=== PATIENT | male | born 1970 ===

== ENCOUNTER 2022-07-02 09:00 | Emergency (ER) | payer OTHER, SELFPAY ==
--- NOTE | ~2022-07-02 | CT_ITS ---
EXAMINATION: CT brain wo con DATE: 07/02/2022 10:07 INDICATION: Upper extremity paresis. Upper body weakness. TECHNIQUE: Computed tomography (CT) of the head was performed without intravenous contrast. The mA wa s adjusted according to patient size. Iterative reconstruction technique was employed. Exam dose: 68 1.00 mGy-cm total exam DLP. COMPARISON: None FINDINGS: No intracranial mass lesion or hemorrhage or cerebrovascular accident. No midline shift or mass effect effect. Normal ventricular size. Normal win-white matter differentiation. No subdural or epidural hematoma. The orbital contents are unremarkable. There is patchy soft tissue thickening of the ethmoid air cells bilaterally. Minimal mucoperiosteal t hickening of the sphenoid sinuses. There is opacification of the minimally developed right frontal si nus. The mastoid air cells are normally developed and aerated. No fracture or bone destruction of the cranial vault. IMPRESSION: No significant intracranial abnormality Paranasal sinus disease Reviewed, dictated and finalized at [facility]. Reviewed, dictated and finalized at [facility].
--- NOTE | ~2022-07-02 | CT_ITS ---
EXAMINATION: CT cervical spine wo con DATE: 07/02/2022 10:07 INDICATION: Upper extremity weakness TECHNIQUE: Computed tomography (CT) of the cervical spine was performed without intravenous contrast. Automated exposure control and iterative reconstruction technique were employed. Exam dose: 407.69 mGy-cm total exam DLP. COMPARISON: None FINDINGS: There is straightening of the cervical spine which may be due to muscle spasm and/or positi oning. C1 and C2 are normally aligned and the odontoid process is intact. No fracture or dislocation or lock ed facet or prevertebral soft tissue swelling. C2-3 interspace is well preserved. Moderate degenerative disc disease at C3-4. Mild degenerative disc disease at C4-5. Moderately severe degenerative disc disease, mild posterior spurring and approximately 1.5 mm retroli sthesis at C5-6. Moderately severe degenerative disc disease and mild to moderate posterior spurring at C6-7. IMPRESSION: Straightening of the cervical spine which may be due to muscle spasm Multilevel degenerative disc disease, greatest at C5-6 and C6-7, with 1.5 mm retrolisthesis at C5-6 Reviewed, dictated and finalized at [facility]. Reviewed, dictated and finalized at location [facility]. IMPRESSION: Straightening of the cervical spine which may be due to muscle spa sm Multilevel degenerative disc disease, greatest at C5-6 and C6-7, with 1.5 mm re trolisthesis at C5-6
[2022-07-02 09:08] VITALS: BP 143/92; PULSE 95; RESP 20; TEMP 36.6; O2SAT 99
--- NOTE | 2022-07-02 09:19 | ECG_ITS ---
Measurements Intervals [place] Rate: 80 P: 10 [place]: 159 QRS: -14 QRSD: 111 T: 15 QT: 344 QTc: 398 Interpretive Statements SINUS RHYTHM MODERATE INTRAVENTRICULAR CONDUCTION DELAY [110+ ms QRS DURATION] NO PREVIOUS ECG AVAILABLE FOR COMPARISON Electronically Signed On 07-02-2022 10:21:52 CDT by Ki Olmos MD
--- NOTE | 2022-07-02 09:22 | ED.NEUROSD ---
HPI - Neuro Symptoms/Deficit General Chief Complaint: Neuro Symptoms/Deficit Stated Complaint: episodes of arm numbness Time Seen by Provider: 07/02/22 09:06 History of Present Illness HPI Narrative: 51-year-old male with no medical history presents to the emergency room for evaluation of intermittent loss of fine motor skills in his upper extremities. Patient reports about 2 weeks ago he was experiencing waves of generalized weakness in his upper extremities, which then followed and being unable to pick up worker small objects with his hands. Patient states that this lasted for around 30 minutes. States after experiencing the weakness in his hands his arms began to shake. Patient states since then he has experienced this 3 other times. He was seen at his primary care physician's office earlier this week for the same complaint, and he was prescribed an anti-inflammatory and a muscle relaxer. States that these are not alleviating his symptoms. Denies any vision changes or vision loss, also states that he does not experience any loss of fine motor movement in his lower extremities. Denies any injury or trauma. Denies fever Related Data Allergies Allergy/AdvReac Type Severity Reaction Status Date / Time No Known Allergies Allergy Verified 07/02/22 09:46 Review of Systems Review of Systems: CONSTITUTIONAL: Denies fever, chills, or sweats. EYES: Denies visual changes, redness, or discharge. ENT: Denies rhinorrhea, congestion, sore throat, or otalgia. CARDIOVASCULAR: Denies chest pain, palpitations, or edema. RESPIRATORY: Denies cough or dyspnea. GASTROINTESTINAL: Denies abdominal pain, nausea, vomiting, or diarrhea. GENITOURINARY: Denies dysuria or hematuria. SKIN: Denies rash or itching. MUSCULOSKELETAL: Denies back pain, joint pain, or myalgia. NEUROLOGIC: Reports weakness in upper extremities PSYCHIATRIC: Denies anxiety or depression. [facility] Family History Family History Mother Family history of lung cancer Social History Social History Smoking status: Never smoker Alcohol intake: current Exam Narrative: GENERAL: Well-appearing, well-nourished, no physical limitations, and in no acute distress. HEAD: Normocephalic, atraumatic. EYES: Conjunctivae normal, PERRLA and EOMI. NECK: Supple. No adenopathy or masses. CHEST: Clear to auscultation. No respiratory distress. No wheezes rales or rhonchi. No tenderness. HEART: Regular rate and rhythm. No murmur heard. Normal peripheral pulses. ABDOMEN: Soft, nontender, nondistended, normal active bowel sounds. BACK: No CVA tenderness; No cervical/thoracic/lumbar tenderness, step-offs, bony abnormality; FROM EXTREMITIES: Normal range of motion. No edema. No clubbing or cyanosis SKIN: Warm, dry, no rash. No noted wounds NEURO: No focal deficits. Alert and oriented x3. MAEW. CN's II-XI intact bilaterally, normal gait. Upper muscular exam: 5/5 strength with gross and fine motor movement; cerebellar exam normal PSYCH: Cooperative. Normal mood and affect. Course Vital Signs Vital signs: Vital Signs Temperature 36.6 C 07/02/22 09:08 Pulse Rate 95 07/02/22 09:08 Respiratory Rate 20 07/02/22 09:08 Blood Pressure 143/92 H 07/02/22 09:08 Pulse Oximetry 99 07/02/22 09:08 Oxygen Delivery Room Air 07/02/22 09:08 Temperature 36.6 C 07/02/22 09:08 Pulse Rate 95 07/02/22 09:08 Respiratory Rate 20 07/02/22 09:08 Blood Pressure 143/92 H 07/02/22 09:08 Pulse Oximetry 99 07/02/22 09:08 Oxygen Delivery Room Air 07/02/22 09:08 MDM - Neuro Symptoms/Deficit MDM Narrative Medical decision making narrative: 51-year-old male presented emergency room for evaluation of intermittent upper extremity alterations in his fine motor movements. CT scan showed no evidence of acute intracranial abnormality. Presentation was not concerning for an acute CVA, TIA
[2022-07-02 09:53] LABS: Basophils Percent Auto 0.8 % (0.2-1.2); Eosinophils Absolute Auto 0.3 K/mm3 (0-0.3); Eosinophils Percent Auto 5.3 % (0-4.4); Hematocrit 44.9 % (42.0-52.0); Hemoglobin 15.6 g/dL (14.0-18.0); Immature Granulocyte Absolute 0.02 K/mm3 (0.00-0.031); Immature Granulocyte Percent A 0.4 % (0-0.5); Lymphocytes Absolute Auto 1.68 K/mm3 (0.9-3.2); Lymphocytes Percent Auto 31.6 % (18.3-44.2); Mean Corpuscular HGB Conc 34.7 g/dl (32-36); Mean Corpuscular Volume 89.3 fl (80-100); Mean Platelet Volume 9.1 fl (7.4-10.4); Monocytes Absolute Auto 0.3 K/mm3 (0.1-0.6); Monocytes Percent Auto 5.5 % (2.6-8.5); Neutrophils Percent Auto 56.4 % (45.5-73.1); Platelet Count Result 243 k/mm3 (150-375); Red Blood Count 5.03 M/mm3 (4.6-6.20); Red Cell Distribution Width 13.2 % (11.5-14.5); White Blood Count 5.3 K/mm3 (4.5-10.0)
--- NOTE | 2022-07-02 10:00 | PC.NURSE ---
Patient off unit to CT.
[2022-07-02 10:03] LABS: Alanine Aminotransferase 36 U/L (6-50); Albumin Level 4.7 g/dL (3.5-5.1); Alkaline Phosphatase 58 U/L (38-126); Anion Gap 7 mmol/L (8-16); Aspartate Amino Transferase 35 U/L (17-59); Bilirubin,Total 0.9 mg/dL (0.2-1.3); Blood Urea Nitrogen 14 mg/dL (9-20); Calcium 9.3 mg/dL (8.4-10.2); Carbon Dioxide 25 mmol/L (22-30); Chloride 103 mmol/L (98-107); Estimated Glomerular Filt Rate > 60; Glucose 92 mg/dL (65-110); Potassium 4.5 mmol/L (3.4-5.0); Sodium 135 mmol/L (137-145)
[2022-07-02 10:15] LABS: Troponin I < 0.012 ng/mL (0.000-0.034)
[2022-07-02 10:56] VITALS: BP 133/85; PULSE 85; RESP 14; O2SAT 97
== END 2022-07-02 10:57 | disposition home or self-care (01) ==
PROVIDERS: Emergency Provider Nurse Practitioner Family; PCP Family Medicine
DX: R53.1 Weakness (principal)
CPT/HCPCS: 36415; 70450; 72125; 80053; 84484; 85025; 93005; 99284

== ENCOUNTER 2022-07-31 06:32 | Outpatient (CLI) | payer OTHER, SELFPAY ==
--- NOTE | ~2022-07-31 | MR_ITS ---
EXAMINATION: MR cervical spine wo/w con DATE: 07/31/2022 09:21 INDICATION: Bilateral arm numbness. Bilateral arm paralysis. TECHNIQUE: Magnetic resonance imaging (MRI) of the cervical spine was performed without and with 16 m L MultiHance intravenous contrast. COMPARISON: CT cervical spine 07/02/2022 FINDINGS: Bone alignment is normal. Vertebral body heights are normal. There is mildly decreased disc height at C3-C4 and C4-C5, moderately decreased disc height at C5-C6, and severely decreased disc he ight at C6-C7 with endplate remodeling. The spinal cord signal intensity is normal. The following dis c levels are specifically discussed: C2-C3: The disc does not extend beyond the endplate margin. There is mild bilateral uncovertebral martinez nt osteoarthritis. There is mild bilateral facet joint osteoarthritis. There is mild bilateral neural foraminal stenosis. There is no central canal stenosis. C3-C4: The disc is bulging. There is severe right and moderate left uncovertebral joint osteoarthriti s. There is mild bilateral facet joint osteoarthritis. There is mild bilateral neural foraminal steno sis. There is mild central canal stenosis. C4-C5: The disc is bulging. There is mild right and severe left uncovertebral joint osteoarthritis. T here is mild bilateral facet joint osteoarthritis. There is mild right and moderate left neural silke inal stenosis. There is mild central canal stenosis. C5-C6: The disc is bulging. There is severe bilateral uncovertebral joint osteoarthritis. There is mi ld bilateral facet joint osteoarthritis. There is moderate bilateral neural foraminal stenosis. There is mild central canal stenosis. C6-C7: The disc is bulging. There is severe bilateral uncovertebral joint osteoarthritis. There is mo derate bilateral facet joint osteoarthritis. There is mild bilateral neural foraminal stenosis. There is mild central canal stenosis. C7-T1: There is a left central extrusion. There is no uncovertebral joint osteoarthritis. There is se katelynn bilateral facet joint osteoarthritis. There is mild bilateral neural foraminal stenosis. There i s mild central canal stenosis. IMPRESSION: 1. Severe cervical spondylosis. Reviewed, dictated and finalized at location A.
--- NOTE | 2022-07-31 10:11 | WPDNEUROLOGY ---
Neurology EEG Report General Information Date of Study: 07/31/22 TEST Routine EEG DIAGNOSIS Concern for seizure CONDITION OF RECORDING Awake and drowsy EEG NUMBER [id number] CLINICAL HISTORY Patient reports he has had two episodes while at work when he gets a strange feeling starting in his neck which travels down to his hands. His arms and hands become paralyzed and shakey . This lasts for several minutes. He denies any loss of consciousness or confusion. EEG DESCRIPTION During the awake state with eyes closed the background consists of 9 Hz posterior dominant rhythm which attenuates appropriately with eye opening. The recording is continuous. There is frequent eye blink artifact throughout the recording. There is a well developed anterior-posterior gradient. No significant asymmetries of background activities are noted. With drowsiness there is was waxing and waning of the dominant rhythm with eventual replacement by a mixture of beta, alpha, and theta activity. The patient does not enter stage II sleep. Photic stimulation elicited appropriate driving response. There are no epileptiform discharges or seizures during this recording. Hyperventilation was not performed. IMPRESSION This is a normal routine EEG recorded in awake and drowsy states. There are no electrographic seizures identified, nor are there any epileptiform discharges. Please note that a normal EEG cannot exclude a seizure disorder. Clinical correlation is recommended.
== END 2022-07-31 06:33 | disposition home or self-care (01) ==
PROVIDERS: PCP Family Medicine; Visit Provider Psychiatry & Neurology Neurology
DX: M47.813 Spondylosis without myelopathy or radiculopathy, cervicothoracic region (principal); M48.03 Spinal stenosis, cervicothoracic region; R20.0 Anesthesia of skin; R56.9 Unspecified convulsions
CPT/HCPCS: 72156; 95816; A9577

== ENCOUNTER 2025-03-22 09:26 | Outpatient (CLI) | payer MEDICAID, SELFPAY ==
--- NOTE | ~2025-03-22 | XR_ITS ---
3 VIEWS LUMBAR SPINE Ordering provider: Rodriguez Lazar, History: . Pain in lt shoulder/ low back pain . Comparison: None. FINDINGS: VERTEBRAL BODIES: No visible fracture or subluxation. Degenerative changes of the spine. Levoscoliosi s. DISK SPACES: Normal. SOFT TISSUES: Normal. IMPRESSION: No acute osseous abnormality lumbar spine. Levoscoliosis. Degenerative changes of the spine Reviewed, dictated and finalized at location A.
--- NOTE | ~2025-03-22 | XR_ITS ---
Left Shoulder Technique: AP and axillary views were obtained. Clinical History: Pain Findings: No fracture or dislocation is seen. Osseous alignment is anatomic. The glenohumeral and acr omioclavicular joint spaces are preserved. Soft tissues are unremarkable. Impression: Unremarkable left shoulder radiographs. Reviewed, dictated and finalized at [facility]. Impression: Unremarkable left shoulder radiographs.
--- NOTE | ~2025-03-22 | XR_ITS ---
XR cervical spine 4-5V Ordering provider: Rodriguez Lazar, History: . Pain in lt shoulder/ low back pain . Comparison: None. FINDINGS: VERTEBRAL BODIES: Normal height and alignment. No visible fracture or subluxation. The dens is intact . Degenerative changes of the spine. DISK SPACES: Narrowing of the disc C3-C4, C5-C6 and C6-C7.. Multilevel uncovertebral joint osteoarthritic changes. PARASPINOUS SOFT TISSUES: No prevertebral soft tissue swelling. IMPRESSION: No acute osseous abnormality cervical spine. Multilevel degenerative disc disease. Reviewed, dictated and finalized at location A.
--- OUTSIDE RECORDS SUMMARY | 2025-03-22 10:19 | XMS_ITS | Data Portability ---
Author Organization [facility], Main Office Address [address] [place] [address] Care Team Providers Care Tin Recovery Worker Name Role Phone RODRIGUEZ LAZAR Primary Care Provider Assessment No assessment recorded. Plan of Treatment Reminders Order Date Submit Date Provider Last Modified By Organization Details Last Modified Time Details Appointments Follow Up 15 2024 03:00P M Rodriguez Lazar MD Not available Not available Not available Lab None recorded. Referral orthopedi c surgeon referral 2024 025 Not available 03/21/2025 15:59:33 pain managemen t referral 2024 025 [email or web address] Not available 03/21/2025 15:59:33 Procedures None recorded. Surgeries None recorded. Imaging XR, cervical spine, 4 or 5 view 2024 025 [facility], [address] [place] [address], [id number], 03/21/2025 15:59:33 XR, lumbosacr al spine, 4 or more view 2024 025 [facility], [address] [place] [address], [id number], 03/22/2025 11:15:47 XR, shoulder, 2 or more view 2024 025 [facility], [address] [place] [address], [address], 03/22/2025 11:08:03 Medication Orders cyclobenz aprine 10 mg tablet 2024 025 [place] [facility][id number], [address], [place], [id number], 03/21/2025 15:47:05 meloxicam 7.5 mg tablet 2024 [facility] #48969, [address], [place], [id number], 03/21/2025 15:47:04 hydroxyzi ne HCl 25 mg tablet 2024 [facility] #75964, [address] [facility], [place], [place], [id number], 03/21/2025 15:49:49 Medrol (Alan) 4 mg tablets in a dose pack 2024 [facility] #03197, [address], [place], [id number], 03/21/2025 15:49:50 Solu-Medr ol (PF) 125 mg/2 mL solution for injection 2024 Not available 03/21/2025 16:17:28 Patient TargetsNo targets recorded. Patient InstructionsNo instructions recorded. Reason for Referral Orthopedic Surgeon Referral for Pain of left shoulder joint Referring Physician: Rodriguez Lazar [facility] Medicine, Encounter Date: 03/21/2025 Pain Management Referral for Cervical spondylosis without myelopathy Chronic neck and low back pain, abnormal MRI c-spine Referring Physician: Rodriguez Lazar [facility] Medicine, Encounter Date: 03/21/2025 Results Created Date Observation Date Name Description Value Unit Range Abnormal Flag Note LastModifiedBy Organization Detail LastModifiedTime 11/07/20 21 XR, shoul blayne, 2 or more view [facility] [address] [place] [address] Paticinthya t Name: HEIDY LUIS Sheikh Access ion #: [id number] Sex: M : 1969 3 7 Locati on: RA2 Attend ing Physic aldo: HÉCTOR LAZAR Orderi ng Physic aldo: HÉCTOR LAZAR Exam Date: 2020 9:30 AM Exam Name: XR SHOULD ER LT 2V+ Admitt ing Diagno sis(es ): RADIOL OGY REPORT - FINAL EXAM: XR SHOULD ER LT 2V+ HISTOR Y: pain51 -year- old male with left should er pain, no known injury . The patien t has a histor y of left should er surger y about 10 years ago. COMPAR ADRIANNA: None availa ble. TECHNI QUE: Four views of the left should er were perfor med. FINDIN GS: No acute fractu re or disloc ation are identi fied about the left should er. There are postop erativ e change s of distal clavic le resect ion and/or acromi oplast y. No signif icant loss of subacr omial space. IMPRES ELLI: Page [address] [facility] Benitez garner Name: LUIS MOODY Access ion #: [id number] Sex: M : 1969 3 7 Exam Date: 2020 9:30 AM Exam Name: XR SHOULD ER LT 2V+ Admitt ing Diagno sis(es ): 1. No fractu re of the left should er. 2. Postop erativ e change s of distal clavic le resect ion and/or acromi oplast y. Create d and electr onical ly signed by: Hansel staton MD Signed Date: 2020 9:52 AM (CT) Dictat ed by: Hansel staton MD DD: 2020 9:52 AM (CT) DT: 2020 9:52 AM (CT) Page 2 of 2 [id number] [facility] (Imaging) [address] [place], [address], 01/28/2023 00:30:50 11/07/20 21 XR, cervi daryl spine , 4 or 5 view [facility] [address], [place] [address] [phone] Benitez garner Name: LUIS MOODY Access ion #: [id number] Sex: M : 1969 3 7 Locati on: RA2 Attend ing Physic aldo: HÉCTOR LAZAR Orderi Physic aldo: HÉCTOR LAZAR Exam Date: 2020 9:30 AM Exam Name: XR C SPINE 4-5V Admitt ing Diagno sis(es ): RADIOL OGY REPORT - FINAL EXAM: XR C SPINE 4-5V HISTOR Y: neck pain 51-yea r-old male with neck pain, left upper extrem ity radicu lar sympto ms, no known injury . COMPAR ADRIANNA: None availa ble. TECHNI QUE: AP, latera l, obliqu e, and odonto id views of the cervic al spine were perfor med. FINDIN GS: No cervic al fractu re, listhe sis, or prever tebral soft tissue edema are identi fied. There is advanc ed degene rative disc diseas e and modera te facet arthro deena. The obliqu e films demons trate possib le signif icant bony forami nal stenos is on the left at multip le levels . Page 1 of 2 [facility] Benitez garner Name: LUIS MOODY Access ion #: [id number] Sex: M : 1969 3 7 Exam Date: 2020 9:30 AM Exam Name: XR C SPINE 4-5V Admitt ing Diagno sis(es ): IMPRES ELLI: 1. No fractu re of the cervic al spine. 2. Degene rative disc diseas e and facet arthro deena with possib le signif icant neural forami nal stenos is at multip le levels on the left. Given the patien t's histor y of left upper extrem ity radicu lar sympto ms, recomm end follow -up noncon trast cervic al spine MRI for evalua tion of the exitin g nerve roots. Create d and electr onical ly signed by: Hansel staton MD Signed Date: 2020 9:51 AM (CT) Dictat ed by: Hansel staton MD DD: 2020 9:51 AM (CT) DT: 2020 9:51 AM (CT) Page 2 of 2 [id number] [facility] (Imaging) [address] [place], [address], 01/28/2023 00:30:50 07/02/20 22 07/02/2022 CT, head + brain , w/o contr ast No observ ation record ed. [address] [facility], [place], [address], 03/21/2025 15:37:09 07/02/20 22 07/02/2022 CT, head + brain , w/o contr ast No observ ation record ed. [address], [place], [address], 03/21/2025 15:37:09 07/31/20 22 07/31/2022 MRI, cervi daryl spine , w/wo contr ast No observ ation record ed. [address], [place], [address], 03/21/2025 15:37:09 07/31/20 22 07/31/2022 elect roenc ephal ogram No observ ation record ed. [address], [place], [address], 03/21/2025 15:37:09 03/22/20 25 03/22/2025 XR, shoul blayne, 2 or more view No observ ation record ed. [address], [place], [address], 03/22/2025 11:08:03 03/22/20 25 03/22/2025 XR, lumbo sacra l spine , 4 or more view No observ ation record ed. [facility] [address], [place], [address], 03/22/2025 11:15:47 Result Notes None recorded. Problems Name Problem SNOMED Code Status Onset Date Resolution Date Notes Provider Name and Address Organization Details Recorded Time Chronic neck pain 6688963639682 Active 2020 Not Available [facility] 3 00:28:21 Pain of left shoulder joint 2171668168818 9109 Active 2020 Not Available [facility] 3 00:28:22 Cervical spondylosi s without myelopathy 719372326 Active 2020 Not Available [facility] 3 00:28:22 History of arthroscop ic procedure on shoulder 668614276 Active 2020 Not Available [facility] 3 00:28:22 Pain of left knee joint 4761868266746 07 Active 2021 Not Available [facility] 3 00:28:22 Cervical radiculopa thy 55714522 Active 2020 Not Available [facility] 3 00:28:22 Degenerati on of interverte bral disc 47084316 Active 2020 Not Available [facility] 3 00:28:22 Chronic low back pain 933222864 Active 2024 Rodriguez Lazar MD [address], [place], [address] , [employer] 5 15:41:25 Chronic neck pain for greater than 3 months 8939682075940 03 Active 2024 Rodriguez Lazar MD [address], [place], [address] , [employer] 5 15:41:55 Allergic contact dermatitis 635227240 Active 2024 Rodriguez Lazar MD [address], [place], [address] , [employer] 15:48:29 Itching of skin 132475442 Active 2024 Rodriguez Lazar MD [address], [address] , [facility] [employer] 15:49:05 Problem Notes None recorded. Procedures Surgical History Date Name Laterality Status Provider Name and Address Organization Details Recorded Time Shoulder completed Not Available [facility] 00:26:32 endoscopic calcaneoplasty for Suraj deformity completed Not Available [facility] 00:26:32 other completed Tonya Torres RN [facility] [employer] 03/21/2025 15:36:27 Imaging Results Imaging Date Name Status LastModified by Organization Details LastModified Time 11/07/2021 XR, shoulder, 2 or m ore view completed [id number] [facility] (Imaging) [address] [place], [address], 01/28/2023 00:30:50 11/07/2021 XR, cervical spine, 4 or 5 view completed [id number] [facility] (Imaging) [address] [place], [address], 01/28/2023 00:30:50 07/02/2022 CT, head + brain, w/ o contrast completed [address], [address], 03/21/2025 15:37:09 07/02/2022 CT, head + brain, w/ o contrast completed [address], [address], 03/21/2025 15:37:09 07/31/2022 MRI, cervical spine, w/wo contrast completed [address], [address], 03/21/2025 15:37:09 07/31/2022 electroencephalogram completed [address] [place], [address], 03/21/2025 15:37:09 03/22/2025 XR, shoulder, 2 or m ore view active [address], [place], [address], 03/22/2025 11:08:03 03/22/2025 XR, lumbosacral spin e, 4 or more view active [address], [place], [address], 03/22/2025 11:15:47 Procedure Notes None recorded. Medical Equipment None Reported. Allergies No known drug allergies Medications Name Sig Start Date Stop Date Status Note LastModified by Organization Details LastModified Time cyclobenzapri ne 10 mg tablet Take 1 tablet every 12 hours by oral route as needed for 30 days. 2024 active Not Available Not Available Not Avai lable Medrol (Alan) 4 mg tablets in a dose pack Take 1 dose pk every day by oral route as directed for 6 days. 2024 active Not Available Not Available Not Avai lable meloxicam 7.5 mg tablet Take 1 tablet every 12 hours by oral route as needed for 30 days. 2024 active Not Available Not Available Not Avai lable diclofenac sodium 75 mg tablet,delaye d release Take 1 tablet every 12 hours by oral route as needed for 30 days. active Take with food, as neede d. Not Available Not Available Not Available hydroxyzine HCl 25 mg tablet Take 1 tablet every 6-8 hours by oral route as needed for 7 days. 2024 active Not Available Not Available Not Avai lable Solu-Medrol (PF) 125 mg/2 mL solution for injection Take 125 mg by injection route for 1 day. 2024 active pt musa well Not Available Not Available Not Available Vitals Date Recorded Body mass index (BMI) Body height Oxygen saturation Oxygen saturation in Arterial blood by Pulse oximetry Heart rate Body temperature Body weight Systolic blood pressure Diastolic blood pressure Provider Name and Address Organization Details Last Updated DateTime 1 27.4 kg/m2 172.72 cm 96 % 96 % 87 /min 97.4 [degF] 21808.6 3 g 120 mm[Hg] 76 mm[Hg] Not Available [facility] 3 00:27:47 Date Recorded Body mass index (BMI) Body height Oxygen saturation Oxygen saturation in Arterial blood by Pulse oximetry Heart rate Respiratory rate Body temperature Body weight Systolic blood pressure Diastolic blood pressure Provider Name and Address Organization Details Last Updated DateTime 1 27.6 kg/m2 172.72 cm 98 % 98 % 98 /min 18 /min 98.3 [degF] 42161.3 7 g 120 mm[Hg] 72 mm[Hg] Not Available [facility] 3 00:27:47 Date Recorded Body mass index (BMI) Body height Oxygen saturation Oxygen saturation in Arterial blood by Pulse oximetry Heart rate Respiratory rate Body temperature Body weight Systolic blood pressure Diastolic blood pressure Provider Name and Address Organization Details Last Updated DateTime 2 27.1 kg/m2 172.72 cm 99 % 99 % 100 /min 20 /min 98.6 [degF] 92116.7 9 g 120 mm[Hg] 82 mm[Hg] Not Available [facility] 3 00:27:47 Date Recorded Body height Body mass index (BMI) Body weight Body temperature Systolic blood pressure Diastolic blood pressure Provider Name and Address Organization Details Last Updated DateTime 5 172.72 cm 30.8 kg/m2 66470.4 1 g 97.9 [degF] 140 mm[Hg] 70 mm[Hg] Tonya Torres RN [facility] 5 15:23:25 Date Recorded Oxygen saturation Oxygen saturation in Arterial blood by Pulse oximetry Heart rate Provider Name and Address Organization Details Last Updated DateTime 03/21/2025 95 % 95 % 96 /min Rodriguez Lazar MD [address] [facility], [address] [address], [place], [address], [place] [employer] [facility] [employer] 03/21/2025 15:39:19 Social History Question Answer Notes LastModified by Organization Details LastModified Time Tobacco Smoking Status Never Smoker Not Available [facility] 01/28/2023 00:26:13 What Is Your Level Of Alcohol Consumption? Occasional 6 Pack Of Beer Twice A Week [email or web address] Information not available 03/21/2025 How Many Years Have You Consumed Alcohol? 31 [email or web address] Information not available 03/21/2025 Do You Wear A Helmet When Biking? Yes [id number] [id number] Information not available 01/28/2023 What Is Your Level Of Caffeine Consumption? Moderate 4 (16oz) Bottles Of Mr. Alvarado Preworkout W/Caffeine Every Other Day [email or web address] Information not available 03/21/2025 What Type Of Diet Are You Following? REGULAR MIGRATION.0301 [id number] Information not available 01/28/2023 Do You Or Have You Ever Used E-cigarettes Or Vape? Never Used Electronic Cigarettes [email or web address] Information not available 03/21/2025 What Is The Highest Grade Or Level Of School You Have Completed Or The Highest Degree You Have Received? 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 No MIGRATION.0301 610509 Information not available 01/28/2023 What Is The Fluoride Status Of Your Home? Unknown MIGRATION.0301 [id number] Information not available 01/28/2023 Where Do You Live? SingleLevelHouse MIGRATION.0301 [id number] Information not available 01/28/2023 Do You Have Any Pets? Yes MIGRATION.0301 [id number] Information not available 01/28/2023 What Is Your Relationship Status? Other MIGRATION.0301 732135 Information not available 01/28/2023 Do You Use Your Seat Belt Or Car Seat Routinely? Yes MIGRATION.0301 [id number] Information not available 01/28/2023 Do You Have Smoke And Carbon Monoxide Detectors In Your Home? Yes MIGRATION.0301 143649 Information not available 01/28/2023 Are You Passively Exposed To Smoke? No MIGRATION.0301 [id number] Information not available 01/28/2023 Do You Or Have You Ever Used Smokeless Tobacco? Former Smokeless Tobacco User Information not available 03/21/2025 Are There Any Smokers In Your House? No MIGRATION.0301 644646 Information not available 01/28/2023 Do You Participate In Social Media? Yes MIGRATION.0301 [id number] Information not available 01/28/2023 Do You Feel Stressed (tense, Restless, Nervous, Or Anxious, Or Unable To Sleep At Night)? [id number] MIGRATION.0301 [id number] Information not available 01/28/2023 Do You Use Any Illicit Or Recreational Drugs? No Information not available 03/21/2025 Are You Currently In School? No MIGRATION.0301 [id number] Information not available 01/28/2023 Do You Have Any Dietary Restrictions? No MIGRATION.030 820612 Information not available 01/28/2023 Do You Or Have You Ever Used Any Other Forms Of Tobacco Or Nicotine? Yes [email or web address] Information not available 03/21/2025 How Many Years Have You Used Smokeless Tobacco? 15 Quit In 2019 [email or web address] Information not available 03/21/2025 Sex: Unknown Functional Status Question Answer Note LastModified by Organizat ion Details LastModified Time What is your exercise level? Heavy [id number] Information not available 01/28/2023 Mental Status None recorded. Family History Relationship Description Onset Age of this Age Resolved Age Notes LastModified by Organization Details LastModified Time Mother Malignant tumor of lung 50 61 [email or web address] Not available 03/21 15:26:19 Mother Familial ovarian cancer 40 61 [email or web address] Not available 03/21 15:27:07 Medical History Condition Response BLINDNESS N RHEUMATIC FEVER N KIDNEY STONES N BLADDER PROBLEMS N MRSA N OTHER # 1 N POLIO N LUNG DISEASE/DISORDER N HISTORY OF DRUG ABUSE N COPD N RADIATION / CHEMOTHERAPY N Other # 2 N BLOOD DISEASES N SURGERY N EAR OR HEARING PROBLEMS N MUMPS N SHINGLES N BOWEL PROBLEMS N FEMALE PROBLEMS / INFECTIONS N DEPRESSION (INCLUDING POST ) N STROKE/TIA N THYROID DISEASE N ULCERS N BENIGN PROSTATIC HYPERPLASIA N MEASLES N CERVICALGIA N TB SKIN TEST N HYPOTENSION N MYOCARDIAL INFARCTION N OBESITY N PARAPELGIA N GERD/NAUSEA N ANEURYSM N URINARY/BLADDER/KIDNEY PROBLEMS N CORONARY ARTERY DISEASE (CAD) N MENIERE'S DISEASE N ADDICTION CONCERNS N ENDOMETRIOSIS N USE OF BLOOD THINNERS N SKIN PROBLEMS N EMPHYSEMA N GASTROINTESTINAL DISORDER N MUSCLE,JOINT OR BONE PROBLEMS N GASTROINTESTINAL BLEEDING N BLOOD CLOTS N ASTHMA N CATARACTS N ERECTILE DYSFUNCTION N GI PROBLEMS N CHF N Low Testosterone N NEUROPATHY N INFERTILITY N AIDS/HIV N FRACTURES N CHEMOTHERAPY / RADIATION N VISION/EYE PROBLEMS N LIVER DISEASE N MALE HYPOGONADISM N HYPERTENSION N TOURETTE'S N ANXIETY DISORDER N BLOOD TRANSFUSION N ANEMIA/BLOOD DISORDER N CHRONIC EAR INFECTIONS N BRONCHITIS N TUBERCULOSIS N GLAUCOMA N FOOT PROBLEM N DIVERTICULITIS N CHICKENPOX N SLEEP APNEA N ALLERGIES/HAYFEVER N INFECTIOUS DISEASE N HEART ARRHYTHMIA N PROSTATE N INSOMNIA N HIGH CHOLESTEROL / HYPERLIPIDEMIA N HYPERTHYROIDISM N EYE PROBLEMS N EATING DISORDER N EDEMA N CHRONIC PAIN SYNDROME N CONSTIPATION N CAROTID BLOCKAGE N BACK / NECK PROBLEMS N HAVE YOU BEEN HOSPITALIZED OR SEEN IN [facility] IN THE PAST YEAR ? N ATHEROSCLEROSIS N BREAST PROBLEMS N DIALYSIS N ECZEMA N FIBROMYALGIA N OSTEOPOROSIS N ARTHRITIS N NO SIGNIFICANT PAST MEDICAL HISTORY N APPENDICITIS N DIABETES, TYPE N BAD TEETH N HEARTBURN / REFLUX N ADD/ADHD N AUTISM SPECTRUM DISORDER (ASD) N HEPATITIS / LIVER DISEASE N PULMONARY DISEASE N GOUT N SLEEP DISORDER N ALZHEIMER'S DISEASE N PAIN N HERPES N DEMENTIA N HEADACHES/MIGRAINES N SEIZURES/EPILEPSY N VASCULAR DISEASE N PACEMAKER N DIZZINESS N HEART DISEASE/HEART PROBLEMS N KIDNEY DISEASE N DEVELOPMENTAL OR BEHAVIORAL DISORDERS N MULTIPLE SCLEROSIS N SCARLET FEVER N MENTAL DISORDER/ILLNESS N CARDIAC ARRHYTHMIA N CANCER: SPECIFY N PNEUMONIA N ATRIAL FIBRILLATION N Gall Stones N PULMONARY EMBOLISM N AUTOIMMUNE DISEASE N Past Encounters Encounter ID Performer Location Encounter Start Date Encounter Closed Date Diagnosis/Indication Diagnosis SNOMED-CT Code Diagnosis ICD10 Code Diagnosis Note [id number] [address] [address] 11/06/2021 00:00:00 11/06/2021 17:41:[id number] [address] 11/13/2021 00:00:00 11/13/2021 17:42:[id number] [address] 06/22/2022 00:00:00 06/22/2022 18:05:20 [id number] Rodriguez Lazar MD [address] [address] 03/21/2025 15:02:38 03/21/2025 15:59:33 Cervical spondylosis without myelopathy 016406631 M47.812 Degenerati on of intervertebral disc 11609914 M51.9 History of arthroscopic procedure on shoulder 649707024 Z98.890 Lt - 15 yrs ago Pain of le ft shoulder joint 3626064816 7714040 M25.512 Chronic Chronic low back pain 27 4861144 M54.50 Chronic ne ck pain for greater than 3 months 8997646608 46046 M54.2 Allergic c ontact dermatitis 123529015 L23.9 Itching of skin 59279549 0 L29.9 Health Concerns Section Related Observation LastModified by Organization Detai ls LastModified Time None Recorded Concern Status LastModified by Organization Details LastModified Time None Recorded Advance Directives Directive None Recorded Payers Encounter Date Sequence Insurance Name Policy Number Policy Barbour Covered Member ID Barbour Member ID Guarantor Name 03/21/2025 1 [place]: [facility] Luis Moody [id number] Luis Moody Notes Date Note Type Note Provider Name and Address Organization Details Recorded Time 03/21/2025 text/html ACV:C/o b/l forearm and leg area rash, itching and irritation for last 2-3 weeks. Denies any insect bite. Chronic dry skin ++. No discharge from it, no fever/chills/n/v/d . C/o chronic neck, low back, Lt shoulder area pain for last several years. Pt has seen a chiropractor & Ortho (for Lt shoulder) several years ago. Pt has not seen any other specialist. Pt had Lt shoulder surgery in the past about 10 yrs ago, but denies any rotator cuff tear at that time.Pt denies any recent trauma/injury/fall . Denies any workman's comp. Pt has done lot of heavy wt lifting for his work outs and heavy lifting work in the past. Pt was last seen in 06/19 and since than, he has not come for any f/u. Pt has not gone for any PT either. Rodriguez Lazar MD [address] [place] [address], [facility] [address], [place], [address], [facility] 03/21/2025 16:01:00
== END 2025-03-22 09:27 | disposition home or self-care (01) ==
PROVIDERS: PCP Family Medicine; Visit Provider Family Medicine
DX: M25.512 Pain in left shoulder (principal); M41.86 Other forms of scoliosis, lumbar region; M47.816 Spondylosis without myelopathy or radiculopathy, lumbar region; M50.31 Other cervical disc degeneration, high cervical region; M50.322 Other cervical disc degeneration at C5-C6 level; M50.323 Other cervical disc degeneration at C6-C7 level
CPT/HCPCS: 72050; 72110; 73030